=== PATIENT | male | born 1960 | race Caucasian/White ===

== ENCOUNTER 2017-10-26 14:27 | Emergency (ER) | payer OTHER | END 2017-10-26 20:46 | disposition home or self-care (01) | LOC: FTE 14:27 | DX: K02.9 Dental caries, unspecified (principal); J45.909 Unspecified asthma, uncomplicated | CPT/HCPCS: 99283; Z7502 ==

== ENCOUNTER 2018-06-04 21:28 | Emergency (ER) | payer OTHER ==
[2018-06-04] MEDS: ONDANSETRON 4 MG INJ IV (22:34)
[2018-06-04] MEDS: morphine 4 MG/ML VIAL IV (22:35)
[2018-06-04 22:38] LABS: ADD MAN DIFF? NO
[2018-06-04 22:39] LABS: BASOPHILS % 0.4 % (0.0-2.0); EOSINOPHILS # 0.4 10^3/ul (0.0-0.5); EOSINOPHILS % 3.9 % (0.0-7.0); HEMOGLOBIN 13.1 g/dl (14.0-18.0); LYMPHOCYTES # 1.5 10^3/ul (0.8-2.9); LYMPHOCYTES % 16.4 % (15.0-51.0); MEAN CORPUSCULAR HEMOGLOBIN 29.1 pg (29.0-33.0); MEAN CORPUSCULAR HGB CONC 30.5 g/dl (32.0-37.0); MEAN CORPUSCULAR VOLUME 95.6 fl (82.0-101.0); MEAN PLATELET VOLUME 11.8 fl (7.4-10.4); MONOCYTE # 0.8 10^3/ul (0.3-0.9); MONOCYTES % 9.3 % (0.0-11.0); NEUTROPHIL # 6.2 10^3/ul (1.6-7.5); NEUTROPHILS % 69.4 % (39.0-77.0); PLATELET COUNT 158 10^3/UL (140-415); RED CELL DISTRIBUTION WIDTH 13.3 % (11.5-14.5)
[2018-06-04] MEDS: SOD CHLORIDE 0.9% 500 ML IV (22:39)
[2018-06-04 23:00] LABS: ALANINE AMINOTRANSFERASE 10 IU/L (13-69); ALBUMIN 3.8 g/dl (3.3-4.9); ALBUMIN/GLOBULIN RATIO 0.97; ALKALINE PHOSPHATASE 44 IU/L (42-121); ASPARTATE AMINO TRANSFERASE 15 IU/L (15-46); BILIRUBIN,INDIRECT 0.1 mg/dl (0-1.1); BILIRUBIN,TOTAL 0.1 mg/dl (0.2-1.3); BLOOD UREA NITROGEN 19 mg/dl (7-20); CALCIUM 9.1 mg/dl (8.4-10.2); CHLORIDE 87 mmol/L (97-110); CREATININE 0.99 mg/dl (0.61-1.24); Estimated GFR > 60 mL/min (>60); GLUCOSE 124 mg/dl (70-220); LIPASE 85 U/L (23-300); SODIUM 138 mmol/L (135-144); TOTAL PROTEIN 7.7 g/dl (6.1-8.1)
[2018-06-04 23:06] LABS: ANION GAP 12 (5-13)
[2018-06-04 23:07] LABS: ADD UMIC YES; UR ASCORBIC ACID NEGATIVE (NEGATIVE); UR BACTERIA FEW /HPF (NONE SEEN); UR BILIRUBIN (Dip) NEGATIVE (NEGATIVE); UR BLOOD (Dip) 3+ mg/dL (NEGATIVE); UR CLARITY SLIGHTLY CLOUDY (CLEAR); UR COLOR YELLOW (YELLOW); UR GLUCOSE (Dip) NEGATIVE (NEGATIVE); UR KETONES (Dip) NEGATIVE (NEGATIVE); UR LEUKOCYTE ESTERASE (Dip) TRACE Leu/ul (NEGATIVE); UR NITRITE (Dip) NEGATIVE (NEGATIVE); UR RBC > 182 /HPF (0-5); UR SPECIFIC GRAVITY (Dip) 1.018 (1.003-1.030); UR SQUAMOUS EPITHELIAL CELL FEW /HPF (FEW); UR TOTAL PROTEIN (Dip) 1+ mg/dl (NEGATIVE); UR UROBILINOGEN (Dip) NEGATIVE (NEGATIVE); UR WBC 7 /HPF (0-5)
[2018-06-04 23:09] LABS: CARBON DIOXIDE 39 mmol/L (21-31)
[2018-06-05] MEDS: HYDROmorphONE 0.5 MG/0.5 ML SYG IV (00:15)
[2018-06-05] MEDS: HYDROCODONE/APAP (10/325) TAB PO (02:07)
== END 2018-06-05 01:46 | disposition home or self-care (01) ==
LOC: E/R 06-05 01:46
DX: N20.0 Calculus of kidney (principal); R40.2142 Coma scale, eyes open, spontaneous, at arrival to emergency department; R40.2362 Coma scale, best motor response, obeys commands, at arrival to emergency department; R40.2252 Coma scale, best verbal response, oriented, at arrival to emergency department; J45.909 Unspecified asthma, uncomplicated
CPT/HCPCS: 36415; 74176; 80053; 81001; 83690; 85025; 87086; 96361; 96374; 96375; 99285-25

== ENCOUNTER 2018-06-05 06:11 | Emergency (ER) | payer OTHER | END 2018-06-05 10:05 | disposition home or self-care (01) | LOC: E/R 06:11 | DX: R31.9 Hematuria, unspecified (principal); I10 Essential (primary) hypertension; J45.909 Unspecified asthma, uncomplicated | CPT/HCPCS: 51702; 99283-25 ==

== ENCOUNTER 2018-06-05 14:14 | Inpatient (IN) | payer OTHER ==
[2018-06-05 16:37] LABS: ADD MAN DIFF? NO
[2018-06-05 16:41] LABS: WHITE BLOOD COUNT 7.9 10^3/ul (4.8-10.8)
[2018-06-05 16:41] LABS: BASOPHILS % 0.4 % (0.0-2.0); EOSINOPHILS # 0.2 10^3/ul (0.0-0.5); EOSINOPHILS % 2.7 % (0.0-7.0); HEMATOCRIT 40.7 % (42.0-52.0); HEMOGLOBIN 12.5 g/dl (14.0-18.0); LYMPHOCYTES # 0.9 10^3/ul (0.8-2.9); LYMPHOCYTES % 11.2 % (15.0-51.0); MEAN CORPUSCULAR HEMOGLOBIN 29.5 pg (29.0-33.0); MEAN CORPUSCULAR HGB CONC 30.7 g/dl (32.0-37.0); MEAN PLATELET VOLUME 11.8 fl (7.4-10.4); MONOCYTE # 0.6 10^3/ul (0.3-0.9); MONOCYTES % 7.4 % (0.0-11.0); NEUTROPHIL # 6.1 10^3/ul (1.6-7.5); NEUTROPHILS % 77.9 % (39.0-77.0); PLATELET COUNT 154 10^3/UL (140-415); RED BLOOD COUNT 4.24 10^6/ul (4.70-6.10); RED CELL DISTRIBUTION WIDTH 13.6 % (11.5-14.5)
[2018-06-05 16:56] LABS: INR 0.89; PROTIME 12.1 Sec (11.9-14.9); PT RATIO 0.9
[2018-06-05 16:58] LABS: ANION GAP 10 (5-13); BLOOD UREA NITROGEN 29 mg/dl (7-20); CALCIUM 8.6 mg/dl (8.4-10.2); CARBON DIOXIDE 37 mmol/L (21-31); CHLORIDE 89 mmol/L (97-110); CREATININE 1.13 mg/dl (0.61-1.24); Estimated GFR > 60 mL/min (>60); GLUCOSE 138 mg/dl (70-220); SODIUM 136 mmol/L (135-144)
[2018-06-05] MEDS ORDERED: ONDANSETRON 4 MG INJ IV (18:00)
[2018-06-05] MEDS ORDERED: ACETAMINOPHEN 325 MG TAB PO ×2 (18:00→19:30)
[2018-06-05 19:08] LABS: URINE PH (Dip) POC 5.5 (5.0-8.5)
[2018-06-05 19:08] LABS: URINE BLOOD (Dip) POC 1+ (NEGATIVE); URINE GLUCOSE (Dip) POC Negative (NEGATIVE); URINE KETONES (Dip) POC Negative (NEGATIVE); URINE LEUKOCYTE EST (Dip) POC Trace (NEGATIVE); URINE NITRITE (Dip) POC Negative (NEGATIVE); URINE TOTAL PROTEIN POC Negative (NEGATIVE)
[2018-06-05] MEDS ORDERED: NACL 0.9% 3 ML SYG IV (19:30)
[2018-06-05 19:31] LABS: ADD UMIC YES; UR ASCORBIC ACID NEGATIVE (NEGATIVE); UR BACTERIA FEW /HPF (NONE SEEN); UR BILIRUBIN (Dip) NEGATIVE (NEGATIVE); UR BLOOD (Dip) 2+ mg/dL (NEGATIVE); UR CLARITY SLIGHTLY CLOUDY (CLEAR); UR COLOR YELLOW (YELLOW); UR GLUCOSE (Dip) NEGATIVE (NEGATIVE); UR KETONES (Dip) NEGATIVE (NEGATIVE); UR LEUKOCYTE ESTERASE (Dip) TRACE Leu/ul (NEGATIVE); UR NITRITE (Dip) NEGATIVE (NEGATIVE); UR RBC 7 /HPF (0-5); UR SPECIFIC GRAVITY (Dip) 1.015 (1.003-1.030); UR TOTAL PROTEIN (Dip) NEGATIVE (NEGATIVE); UR UROBILINOGEN (Dip) NEGATIVE (NEGATIVE); UR WBC 14 /HPF (0-5)
[2018-06-05 20:39] LABS: AADO2 Arterial 0.8 mmHg (7.0-24.0); Allen Test ACCEPTAB; Arterial Base Excess 7.7 mmol/L (-3.0-3); Arterial Blood Gas Oxygen Sat 95.3 mmHG (95.0-98.0); Arterial COHb 0.8 % (0.0-3.0); Arterial Fraction of Oxyhgb 94.3 % (93.0-99.0); Arterial HCO3 35.3 mmol/L (22.0-26.0); Arterial MetHb 0.2 % (0.0-1.5); Arterial pCO2 62.4 mmhg (35-45); MODE ROOM AIR; Site Right Radial
[2018-06-05] MEDS: FUROSEMIDE 100 MG INJ IV (21:34)
[2018-06-06] MEDS: FUROSEMIDE 100 MG INJ IV (06:29)
[2018-06-06 06:40] LABS: ADD MAN DIFF? NO
[2018-06-06 06:45] LABS: BASOPHILS % 0.6 % (0.0-2.0); EOSINOPHILS # 0.3 10^3/ul (0.0-0.5); EOSINOPHILS % 3.9 % (0.0-7.0); HEMATOCRIT 40.2 % (42.0-52.0); HEMOGLOBIN 12.5 g/dl (14.0-18.0); LYMPHOCYTES % 14.5 % (15.0-51.0); MEAN CORPUSCULAR HEMOGLOBIN 29.8 pg (29.0-33.0); MEAN CORPUSCULAR HGB CONC 31.1 g/dl (32.0-37.0); MEAN CORPUSCULAR VOLUME 95.9 fl (82.0-101.0); MEAN PLATELET VOLUME 11.4 fl (7.4-10.4); MONOCYTE # 0.7 10^3/ul (0.3-0.9); MONOCYTES % 10.4 % (0.0-11.0); NEUTROPHIL # 4.6 10^3/ul (1.6-7.5); NEUTROPHILS % 70.3 % (39.0-77.0); PLATELET COUNT 142 10^3/UL (140-415); RED BLOOD COUNT 4.19 10^6/ul (4.70-6.10); RED CELL DISTRIBUTION WIDTH 13.5 % (11.5-14.5)
[2018-06-06 06:45] LABS: WHITE BLOOD COUNT 6.6 10^3/ul (4.8-10.8)
[2018-06-06 07:18] LABS: ALANINE AMINOTRANSFERASE 14 IU/L (13-69); ALBUMIN 3.3 g/dl (3.3-4.9); ALBUMIN/GLOBULIN RATIO 0.94; ALKALINE PHOSPHATASE 45 IU/L (42-121); ASPARTATE AMINO TRANSFERASE 16 IU/L (15-46); BILIRUBIN,INDIRECT 0.2 mg/dl (0-1.1); BILIRUBIN,TOTAL 0.2 mg/dl (0.2-1.3); BLOOD UREA NITROGEN 23 mg/dl (7-20); CALCIUM 8.6 mg/dl (8.4-10.2); CHLORIDE 92 mmol/L (97-110); CREATININE 0.92 mg/dl (0.61-1.24); Estimated GFR > 60 mL/min (>60); GLUCOSE 128 mg/dl (70-220); SODIUM 137 mmol/L (135-144); TOTAL PROTEIN 6.8 g/dl (6.1-8.1)
[2018-06-06 07:33] LABS: ANION GAP 1 (5-13); CARBON DIOXIDE 44 mmol/L (21-31)
[2018-06-06 09:04] LABS: HEMOGLOBIN A1C 6.1 % (0-5.9)
[2018-06-06] MEDS: LISINOPRIL 20 MG TAB PO (09:37)
[2018-06-06] MEDS: FAMOTIDINE 20 MG TAB PO (09:37)
[2018-06-06] MEDS: FUROSEMIDE 20 MG INJ IV (19:55)
[2018-06-06] MEDS: ARFORMOTEROL TARTRATE 15MCG/2 ML AMP NEB (20:00)
[2018-06-06] MEDS: ALBUTEROL/IPRATROPIUM (NEB) 3 ML AMP HHN (21:13)
[2018-06-06] MEDS: CEFTRIAXONE 1 GM/50 ML (PMX) 50 ML IVPB (23:15)
[2018-06-07 05:40] LABS: ADD MAN DIFF? NO
[2018-06-07 05:43] LABS: WHITE BLOOD COUNT 5.4 10^3/ul (4.8-10.8)
[2018-06-07 05:43] LABS: BASOPHILS % 0.4 % (0.0-2.0); EOSINOPHILS # 0.3 10^3/ul (0.0-0.5); HEMATOCRIT 39.3 % (42.0-52.0); LYMPHOCYTES # 1.1 10^3/ul (0.8-2.9); LYMPHOCYTES % 20.1 % (15.0-51.0); MEAN CORPUSCULAR HEMOGLOBIN 29.3 pg (29.0-33.0); MEAN CORPUSCULAR HGB CONC 30.5 g/dl (32.0-37.0); MEAN CORPUSCULAR VOLUME 95.9 fl (82.0-101.0); MEAN PLATELET VOLUME 11.9 fl (7.4-10.4); MONOCYTE # 0.8 10^3/ul (0.3-0.9); MONOCYTES % 15.3 % (0.0-11.0); NEUTROPHIL # 3.2 10^3/ul (1.6-7.5); NEUTROPHILS % 58.8 % (39.0-77.0); PLATELET COUNT 149 10^3/UL (140-415); RED CELL DISTRIBUTION WIDTH 13.6 % (11.5-14.5)
[2018-06-07] MEDS: FUROSEMIDE 20 MG INJ IV ×2 (05:45→17:18)
[2018-06-07 06:16] LABS: BLOOD UREA NITROGEN 24 mg/dl (7-20); CALCIUM 8.7 mg/dl (8.4-10.2); CHLORIDE 89 mmol/L (97-110); CREATININE 0.82 mg/dl (0.61-1.24); Estimated GFR > 60 mL/min (>60); GLUCOSE 122 mg/dl (70-220); POTASSIUM 4.6 mmol/L (3.5-5.1); SODIUM 137 mmol/L (135-144)
[2018-06-07 06:18] LABS: PHOSPHORUS 3.5 mg/dl (2.5-4.9)
[2018-06-07 06:18] LABS: CHOL/HDL RATIO 3.2 RATIO; CHOLESTEROL 111 mg/dl (100-200); HDL CHOLESTEROL 34 mg/dl (28-71); LDL CHOLESTEROL,CALCULATED 65 mg/dl; MAGNESIUM 2.2 mg/dl (1.7-2.5); TRIGLYCERIDES 60 mg/dl (0-149)
[2018-06-07 06:22] LABS: ANION GAP 8 (5-13)
[2018-06-07 06:34] LABS: CARBON DIOXIDE 40 mmol/L (21-31)
[2018-06-07] MEDS: ARFORMOTEROL TARTRATE 15MCG/2 ML AMP NEB ×2 (08:19→20:24)
[2018-06-07] MEDS: ALBUTEROL/IPRATROPIUM (NEB) 3 ML AMP HHN ×3 (08:19→20:24)
[2018-06-07] MEDS: LISINOPRIL 20 MG TAB PO (08:56)
[2018-06-07] MEDS: FAMOTIDINE 20 MG TAB PO (08:57)
[2018-06-07] MEDS: PSYLLIUM 28% PACKET PO ×2 (08:57→20:47)
[2018-06-07] MEDS: HYDROCODONE/APAP (5/325) TAB PO ×2 (09:04→17:10)
[2018-06-07] MEDS: CEFTRIAXONE 1 GM/50 ML (PMX) 50 ML IVPB (22:00)
[2018-06-08] MEDS: ALBUTEROL/IPRATROPIUM (NEB) 3 ML AMP HHN ×4 (02:44→19:35)
[2018-06-08] MEDS: FUROSEMIDE 20 MG INJ IV ×2 (06:30→18:11)
[2018-06-08] MEDS: PSYLLIUM 28% PACKET PO (08:38)
[2018-06-08] MEDS: FAMOTIDINE 20 MG TAB PO (08:39)
[2018-06-08] MEDS: LISINOPRIL 20 MG TAB PO (08:39)
[2018-06-08] MEDS: ARFORMOTEROL TARTRATE 15MCG/2 ML AMP NEB ×2 (08:43→19:43)
[2018-06-08] MEDS: HYDROCODONE/APAP (5/325) TAB PO (09:08)
== END 2018-06-08 20:32 | disposition home or self-care (01) | DRG 696 ==
LOC: E/R 14:14 → 2NE 17:33
DX: R31.0 Gross hematuria (principal); I50.32 Chronic diastolic (congestive) heart failure; J96.11 Chronic respiratory failure with hypoxia; Z68.43 Body mass index [BMI] 50.0-59.9, adult; N39.0 Urinary tract infection, site not specified; Z99.81 Dependence on supplemental oxygen; E11.8 Type 2 diabetes mellitus with unspecified complications; E66.01 Morbid (severe) obesity due to excess calories; J44.9 Chronic obstructive pulmonary disease, unspecified; R73.03 Prediabetes; B95.2 Enterococcus as the cause of diseases classified elsewhere; B95.4 Other streptococcus as the cause of diseases classified elsewhere
CPT/HCPCS: 36600; 71046; 80048; 80053; 80061; 81001; 81003; 82803; 83036; 83735; 84100; 85025; 85610; 85730; 87086; 88104; 93306; 94640; 94660; 94664; 99285-25